=== PATIENT | male | born 1960 | race Caucasian/White ===

== ENCOUNTER 2019-10-29 13:56 | Inpatient (IN) | payer MEDICAID ==
[~2019-10-29] VITALS: Ht 172.7 cm; Wt 71.7 kg
[2019-10-29] MEDS ORDERED: VANCOMYCIN PER PHARMACY 1,000 MG IV SCH (14:45)
[2019-10-29] MEDS ORDERED: SODIUM CHLORIDE 0.9% 500 ML IV ONE (14:45)
[2019-10-29 15:21] LABS: Basophils # (auto) 0 10 ^3/uL (0-0.2); Basophils % (auto) 0.6 % (0.0-2.0); Eosinophils # (auto) 0.3 10 ^3/uL (0-0.8); Eosinophils % (auto) 5.2 % (0.0-7.0); Hematocrit 35.4 % (41.0-53.0); Hemoglobin 11.5 g/dL (13.5-17.5); Lymphocytes % (auto) 16.7 % (10.0-50.0); Mean Corpuscular Hemoglobin 27.7 pg (28.0-32.0); Mean Corpuscular Hgb Conc. 32.5 g/dL (32.0-36.0); Mean Corpuscular Volume 85.1 fL (80.0-100.0); Monocytes # (auto) 0.5 10 ^3/uL (0-1.3); Monocytes % (auto) 8.8 % (0.0-12.0); Neutrophils # (auto) 4.2 10 ^3/uL (1.6-8.6); Neutrophils % (auto) 68.7 % (37.0-80.0); Platelet Count (auto) 235 10^3/uL (140-450); Red Blood Cells 4.16 10^6/uL (4.5-5.90); Red Cell Distribution Width 18.8 % (11.8-14.3); White Blood Cell 6.1 10^3/uL (4.4-10.8)
[2019-10-29] MEDS ORDERED: FUROSEMIDE 20 MG/2 ML VIAL IV ONE ×2 (15:30→17:00)
[2019-10-29] MEDS ORDERED: VANCOMYCIN 1GM/250ML 250 ML IV ONE (15:30)
[2019-10-29 15:35] LABS: Alanine Aminotransferase 30 U/L (16-61); Albumin 2.8 g/dL (3.4-5.0); Anion Gap 6 (5-15); Aspartate Aminotransferase 32 U/L (15-37); BUN/Creatinine Ratio 12.1; Blood Urea Nitrogen 12 mg/dL (7-18); Calcium 8.5 mg/dL (8.5-10.1); Carbon Dioxide 31 mmol/L (21-32); Chloride 98 mmol/L (98-107); GFR African American 100 mL/min; GFR Non-African American 83 mL/min; Glucose 140 mg/dL (74-106); Potassium 3.7 mmol/L (3.5-5.1); Sodium 135 mmol/L (136-145)
[2019-10-29 15:40] LABS: Alkaline Phosphatase 112 U/L (45-117); Bilirubin, Total 0.6 mg/dL (0.2-1.0); Total Protein 6.8 g/dL (6.4-8.2)
[2019-10-29 15:42] LABS: INR 1.07 (0.9-1.15); Partial Thromboplastin Time 27.9 sec (23.64-32.05)
[2019-10-29] MEDS ORDERED: IOHEXOL 350 MG/ML 100ML IJ ONE (17:07)
[2019-10-29 17:39] LABS: Urine WBC None Seen /hpf (0 - 3)
[2019-10-29 17:59] LABS: Urine Bacteria NONE SEEN /hpf (None Seen); Urine Blood Negative /uL (Negative); Urine Specific Gravity 1.008 (1.001-1.035)
[2019-10-29] MEDS ORDERED: MORPHINE SULF INJ 2 MG/ML SYRINGE 1ML IV PRN (18:00)
[2019-10-29] MEDS ORDERED: NITROGLYCERIN 0.4 MG SL TAB SL ONE (18:00)
[2019-10-29] MEDS ORDERED: FUROSEMIDE 100 MG/10ML VIAL IV ONE (18:00)
[2019-10-29] MEDS ORDERED: PIPERACILLIN-TAZOB 3.375GM 100 ML IV SCH (18:00)
[2019-10-29] MEDS ORDERED: MORPHINE SULF INJ 2 MG/ML SYRINGE 1ML IV ONE (18:00)
[2019-10-29] MEDS ORDERED: NITROGLYCERIN 0.4 MG SL TAB SL PRN ×2 (18:00→19:15)
[2019-10-29] MEDS ORDERED: ONDANSETRON HCL 4 MG/2 ML VIAL IV PRN (19:15)
[2019-10-29] MEDS ORDERED: DEXTROSE (50%) 50ML SYRG IV PRN (19:15)
[2019-10-29] MEDS ORDERED: PIPERACILLIN-TAZOB 3.375GM 100 ML IV ONE (19:15)
--- NOTE | 2019-10-29 19:45 | NUR ---
Pt received from ER via wheelchair, A/A/O x 4. No c/o pain or discomfort at this time. Explained unit environment, call light within reach and side rails up x 2.
[2019-10-29 20:00] VITALS: BP 131/80
[2019-10-29] MEDS: FAMOTIDINE 20 MG TAB PO SCH (21:30)
[2019-10-29] MEDS: ATORVASTATIN 20 MG TAB PO SCH (21:30)
[2019-10-29] MEDS: METOPROLOL TARTRATE 25 MG TAB PO SCH (21:30)
[2019-10-29] MEDS ORDERED: POTA10TA51 PO (21:52)
[2019-10-29] MEDS ORDERED: FURO1TAB31 PO (21:52)
[2019-10-29 22:00] VITALS: BP 131/80
[2019-10-29] MEDS: InsuLIN REG 1unit/0.01ml Soln (100units/ml) SC SCH (22:00)
[2019-10-29] MEDS: ACCU-CHEK COMFORT CURVE STRIP VI SCH (22:33)
[2019-10-29] MEDS: PIPERACILLIN-TAZOB 3.375GM 100 ML IV SCH (23:34)
[2019-10-30] MEDS: HYDROcodone-ACET 5/325MG TAB PO PRN ×2 (01:08→20:44)
[2019-10-30 05:00] VITALS: BP 129/76
[2019-10-30 05:25] LABS: Basophils # (auto) 0 10 ^3/uL (0-0.2); Basophils % (auto) 0.6 % (0.0-2.0); Eosinophils # (auto) 0.4 10 ^3/uL (0-0.8); Eosinophils % (auto) 7.3 % (0.0-7.0); Hematocrit 35.2 % (41.0-53.0); Hemoglobin 11.7 g/dL (13.5-17.5); Lymphocytes % (auto) 16.3 % (10.0-50.0); Mean Corpuscular Hemoglobin 28.3 pg (28.0-32.0); Mean Corpuscular Hgb Conc. 33.3 g/dL (32.0-36.0); Monocytes # (auto) 0.5 10 ^3/uL (0-1.3); Monocytes % (auto) 9.2 % (0.0-12.0); Neutrophils % (auto) 66.6 % (37.0-80.0); Nucleated Red Blood Cells % 0.1 %; Platelet Count (auto) 221 10^3/uL (140-450); Red Blood Cells 4.15 10^6/uL (4.5-5.90); Red Cell Distribution Width 18.8 % (11.8-14.3)
[2019-10-30] MEDS: PIPERACILLIN-TAZOB 3.375GM 100 ML IV SCH ×3 (05:31→17:31)
[2019-10-30 05:42] LABS: % Iron Saturation 10.7 % (20-55)
[2019-10-30 05:43] LABS: Albumin 2.8 g/dL (3.4-5.0); Calcium 8.3 mg/dL (8.5-10.1); Magnesium 2.1 mg/dL (1.6-2.6); Potassium 3.5 mmol/L (3.5-5.1)
[2019-10-30 05:52] LABS: BUN/Creatinine Ratio 8.7; Bilirubin, Total 0.7 mg/dL (0.2-1.0); CRP High Sensitivity 2.14 mg/dL (< 0.3); Phosphorus 3.3 mg/dL (2.5-4.90); Total Protein 6.8 g/dL (6.4-8.2)
[2019-10-30] MEDS: FUROSEMIDE 100 MG/10ML VIAL IV SCH ×2 (05:58→17:32)
[2019-10-30] MEDS: InsuLIN REG 1unit/0.01ml Soln (100units/ml) SC SCH ×4 (05:59→22:00)
[2019-10-30] MEDS: ACCU-CHEK COMFORT CURVE STRIP VI SCH ×4 (06:00→22:22)
[2019-10-30] MEDS: VANCOMYCIN 1GM/250ML 250 ML IV SCH ×2 (06:57→20:42)
[2019-10-30 07:04] LABS: Cholesterol 145 mg/dL (< 200); HDL Cholesterol 41 mg/dL (40-59); LDL Cholesterol 83 mg/dL (< 100); Triglycerides 69 mg/dL (< 150)
--- NOTE | 2019-10-30 07:45 | NUR ---
Patient in bed, awake, oriented x4, on room air, bilateral lower extremities with redness noted, scabbed skin tear on the right knee, scabs on bilateral bottom of the feet. No acute distress noted.
--- NOTE | 2019-10-30 08:50 | NUR ---
Photos taken of bilateral lower extremities, bilateral feet. Wound Care forms placed on the Wound Care tray. Camera returned to [facility].
[2019-10-30 09:00] VITALS: BP 129/79
--- NOTE | 2019-10-30 09:50 | NUR ---
As per Unit SecYvonne Jain, the Podiatry Consult called in but Dr. Byrne will be available on Friday, November 01, 2019.
[2019-10-30] MEDS: ENOXAPARIN SOD 40 MG/0.4 ML SYRINGE SC SCH ×2 (10:00→10:24)
[2019-10-30] MEDS: DOCUSATE SOD 100 MG CAP PO SCH (10:00)
[2019-10-30] MEDS: METOPROLOL TARTRATE 25 MG TAB PO SCH ×2 (10:25→22:21)
[2019-10-30] MEDS: LISINOPRIL 5 MG TAB PO SCH (10:26)
[2019-10-30] MEDS: FAMOTIDINE 20 MG TAB PO SCH ×2 (10:26→22:22)
[2019-10-30] MEDS: ASPirin 81 mg TAB PO SCH (10:26)
--- NOTE | 2019-10-30 10:26 | NUR ---
Patient stated he had a bowel movement today. Colace PO held.
--- NOTE | 2019-10-30 10:27 | NUR ---
Patient refused Lovenox SC. Risks and benefits explained, patient verbalized "I don't want it at all."
--- NOTE | 2019-10-30 12:00 | NUR ---
Tam Pereyra at bedside for Cardiology Consult. ordered EKG.
--- NOTE | 2019-10-30 12:18 | NUR ---
EKG done. Copy of results given to Tam Pereyra MD ordered Cardiolite Multiple on Friday, November 01, 2019.
--- NOTE | 2019-10-30 12:25 | NUR ---
EKG results copy placed in the patient's chart.
--- NOTE | 2019-10-30 12:50 | NUR ---
Ana Sommers at bedside. made aware Dr. Nick has seen the patient for Cardiology Consult and ordered Stress Test on Friday. assessed the bilateral lower extremities and feet. Dr. Garcia ordered to cancel the Podiatry Consult.
--- NOTE | 2019-10-30 12:54 | NUR ---
Called the office of Dr. Byrne. Phone on voicemail. Left a message that patient's Podiatry Consult is cancelled.
[2019-10-30 13:00] VITALS: BP 128/74
[2019-10-30] MEDS ORDERED: POTASSIUM CHL 20 Meq TABLET PO ONE (13:00)
[2019-10-30] MEDS ORDERED: OPTISON 3ml Vial for INJ IV ONE ×2 (14:26→14:30)
--- NOTE | 2019-10-30 16:00 | NUR ---
About 700 ml of clear, yellowish urine emptied from two urinals.
--- NOTE | 2019-10-30 16:45 | NUR ---
Patient walking in the room. Steady gait noted.
[2019-10-30 17:00] VITALS: BP 119/69
--- NOTE | 2019-10-30 19:26 | NUR ---
Opening Shift Note Assumed care of patient after receiving report from CHELO Bowman. Patient laying in bed comfortably, awake and alert. No S/S of distress/SOB or pain. Instructed on POC and to call for assist PRN, will continue to monitor for changes Q1hr and PRN.
--- NOTE | 2019-10-30 20:56 | NUR ---
Pain management Patient stated he was experiencing pain 7/10 in bilateral lower extremities. Available medication is Erie PRN for moderate pain 4-6. Patient requested Erie as a pain reliever. Will reassess and continue to monitor.
[2019-10-30 22:00] VITALS: BP 133/77
[2019-10-30] MEDS: ATORVASTATIN 20 MG TAB PO SCH (22:21)
[2019-10-31] MEDS: PIPERACILLIN-TAZOB 3.375GM 100 ML IV SCH ×4 (00:17→17:28)
[2019-10-31 05:00] VITALS: BP 127/80
--- NOTE | 2019-10-31 05:48 | NUR ---
IV removal Patient stated IV was pulled out while sleeping, he didn't realize it was caught. IV catheter fully intact, no trauma to site. Pressure dressing applied to site. Patient tolerated well. Addendum: 10/31/19 at 0559 by Lucero Lehman RN IV insertion IV access obtained, via clean sterile technique by inserting 22 gauge catheter at left wrist after 2 attempt(s). IV secured properly. No trauma to site. Patient tolerated well.
[2019-10-31 06:09] LABS: Basophils # (auto) 0.1 10 ^3/uL (0-0.2); Basophils % (auto) 0.8 % (0.0-2.0); Eosinophils # (auto) 0.6 10 ^3/uL (0-0.8); Eosinophils % (auto) 8.2 % (0.0-7.0); Hematocrit 36.5 % (41.0-53.0); Hemoglobin 11.9 g/dL (13.5-17.5); Lymphocytes % (auto) 14.9 % (10.0-50.0); Mean Corpuscular Hemoglobin 27.4 pg (28.0-32.0); Mean Corpuscular Hgb Conc. 32.6 g/dL (32.0-36.0); Mean Corpuscular Volume 84.2 fL (80.0-100.0); Monocytes # (auto) 0.6 10 ^3/uL (0-1.3); Monocytes % (auto) 8.6 % (0.0-12.0); Neutrophils # (auto) 4.7 10 ^3/uL (1.6-8.6); Neutrophils % (auto) 67.5 % (37.0-80.0); Platelet Count (auto) 238 10^3/uL (140-450); Red Blood Cells 4.34 10^6/uL (4.5-5.90)
[2019-10-31] MEDS: FUROSEMIDE 100 MG/10ML VIAL IV SCH ×2 (06:09→17:28)
[2019-10-31] MEDS: ACCU-CHEK COMFORT CURVE STRIP VI SCH (06:09)
[2019-10-31] MEDS: InsuLIN REG 1unit/0.01ml Soln (100units/ml) SC SCH (06:19)
[2019-10-31 06:28] LABS: Calcium 8.7 mg/dL (8.5-10.1); Potassium 3.6 mmol/L (3.5-5.1)
[2019-10-31 06:30] LABS: BUN/Creatinine Ratio 11.2
--- NOTE | 2019-10-31 08:00 | NUR ---
Patient standing up, walking in the room. No acute distress noted.
[2019-10-31 09:00] VITALS: BP 131/74
--- NOTE | 2019-10-31 09:11 | NUR ---
Ana Sommers at bedside. ordered to obtain medical records from [facility].
--- NOTE | 2019-10-31 09:20 | NUR ---
Ana Sommers ordered to discontinue Accu check, Insulin orders. Patient's blood sugar levels within normal range.
--- NOTE | 2019-10-31 09:30 | NUR ---
Called Pharmacy that Vancomycin IV is at 1100 am and Zosyn IV is at 1200 pm. Patient's IV line is only 22 gauge. Pharmacist said Zosyn IV can be given now, but wait for the Vancomycin trough results before giving the Vanco at 1100 am.
[2019-10-31] MEDS: ENOXAPARIN SOD 40 MG/0.4 ML SYRINGE SC SCH (09:56)
[2019-10-31] MEDS: POTASSIUM CHL 20 Meq TABLET PO SCH (09:58)
[2019-10-31] MEDS: ASPirin 81 mg TAB PO SCH (09:58)
[2019-10-31] MEDS: METOPROLOL TARTRATE 25 MG TAB PO SCH ×2 (09:59→21:56)
[2019-10-31] MEDS: FAMOTIDINE 20 MG TAB PO SCH ×2 (09:59→21:56)
[2019-10-31] MEDS: LISINOPRIL 5 MG TAB PO SCH (09:59)
[2019-10-31] MEDS: DOCUSATE SOD 100 MG CAP PO SCH (09:59)
--- NOTE | 2019-10-31 10:00 | NUR ---
Patient had a bowel movement. Patient refused Colace. Patient refused Lovenox SC. Patient is ambulatory, steady gait noted.
--- NOTE | 2019-10-31 10:08 | NUR ---
Request to obtain medical records from [facility] (P# [phone]) sent via .
[2019-10-31] MEDS: VANCOMYCIN 1GM/250ML 250 ML IV SCH ×2 (11:26→11:37)
--- NOTE | 2019-10-31 11:30 | NUR ---
Called Laboratory for Vanco trough results. Vancomycin IV is due at 1100 am.
--- NOTE | 2019-10-31 11:31 | NUR ---
Called Pharmacy that Vanco trough results still pending.
--- NOTE | 2019-10-31 11:32 | NUR ---
Pharmacist said the Vanco trough was just resulted at this time.
--- NOTE | 2019-10-31 11:50 | NUR ---
Received the medical records from [facility] via Fax. Medical records placed in the patient's chart. Ana Sommers made aware.
[2019-10-31 13:00] VITALS: BP 120/78
[2019-10-31 17:00] VITALS: BP 124/80
--- NOTE | 2019-10-31 19:31 | NUR ---
Opening Shift Note Assumed care of patient after receiving report from CHELO Bowman. Patient is awake and alert, resting in bed comfortably. No S/S of distress/SOB or pain. Instructed on POC and to call for assist PRN, call light within reach. Will continue to monitor for changes Q1hr and PRN.
[2019-10-31] MEDS: ATORVASTATIN 20 MG TAB PO SCH (21:55)
[2019-10-31 22:00] VITALS: BP 128/80
[2019-10-31] MEDS: HYDROcodone-ACET 5/325MG TAB PO PRN (22:04)
[2019-11-01] VITALS (7 sets, daily range): BP systolic 95–131; BP diastolic 56–81
[2019-11-01] MEDS: PIPERACILLIN-TAZOB 3.375GM 100 ML IV SCH ×4 (00:09→17:49)
[2019-11-01] MEDS: VANCOMYCIN 1GM/250ML 250 ML IV SCH ×2 (00:58→15:34)
--- NOTE | 2019-11-01 04:34 | NUR ---
IV insertion x2 IV access obtained, via clean sterile technique by inserting 20 gauge catheter at the right forearm and 20 gauge at the left forearm after 1 attempt each. IVs secured properly. No trauma to site. Patient tolerated well.
[2019-11-01] MEDS: FUROSEMIDE 100 MG/10ML VIAL IV SCH ×2 (05:50→17:48)
--- NOTE | 2019-11-01 06:58 | NUR ---
Care endorsed to CHELO Castro. Patient resting in bed comfortably, bed in lowest position, call light within reach. No s/s of SOB, pain, or distress noted at this time.
--- NOTE | 2019-11-01 07:30 | NUR ---
Opening Shift Note Assumed care of patient after receiving report from noc shift rn. Patient is awake and alert, watching TV. No S/S of distress/SOB, denies pain at this time. Plan of care discussed, encouraged to call for assist PRN, phone and call light within reach. Will continue to monitor for changes Q1hr and PRN. Awaiting stress test this AM.
[2019-11-01] MEDS ORDERED: ADENOSINE 69 MG in GIVE UN-DILUTED 0 ML IV STA (08:17)
--- NOTE | 2019-11-01 09:08 | NUR ---
Dr. Garcia at bedside, discussed plan of care with patient. Patient able to express concerns and verbalized understanding.
--- NOTE | 2019-11-01 09:10 | NUR ---
patient is currently off unit for stress test. will resume scheduled medication upon return to unit.
[2019-11-01] MEDS: DOCUSATE SOD 100 MG CAP PO SCH (10:00)
[2019-11-01] MEDS: ENOXAPARIN SOD 40 MG/0.4 ML SYRINGE SC SCH (10:00)
--- NOTE | 2019-11-01 11:12 | NUR ---
PATIENT BACK IN UNIT. SCHEDULED MEDICATION RESUMED. PATIENT REFUSED COLACE AND LOVENOX AT THIS TIME.
[2019-11-01] MEDS: METOPROLOL TARTRATE 25 MG TAB PO SCH (11:13)
[2019-11-01] MEDS: ASPirin 81 mg TAB PO SCH (11:14)
[2019-11-01] MEDS: POTASSIUM CHL 20 Meq TABLET PO SCH (11:14)
[2019-11-01] MEDS: FAMOTIDINE 20 MG TAB PO SCH ×2 (11:15→21:52)
[2019-11-01] MEDS: LISINOPRIL 5 MG TAB PO SCH (11:15)
--- NOTE | 2019-11-01 15:15 | NUR ---
MAK GARCIA AT BEDSIDE, DISCUSSED STRESS TEST RESULT AND PLAN FOR LEFT HEART CATH AND CORONARY ANGIOGRAM ON FRIDAY, 11/02. PATIENT VERBALIZED UNDERSTANDING. WILL CONTINUE TO MONITOR Q1HR AND PRN.
--- NOTE | 2019-11-01 15:19 | NUR ---
Received Social Service Referral for pt that is listed as not having any insurance. Pt is unemployed. Discussed with pt eligibility options for medical coverage based on their current situation. Pt referred to Ronny Alcantara, [place] Manager , to assist with process for [employer] insurance coverage. Advised pt that additional information regarding d/c planning would be provided prior to their discharge. Will follow up with Ronny regarding the insurance status.
--- NOTE | 2019-11-01 15:52 | NUR ---
I faxed [employer] order to [employer].
[2019-11-01] MEDS: CARVEDILOL 12.5 MG TAB PO SCH (17:50)
--- NOTE | 2019-11-01 19:31 | NUR ---
Opening Shift Note Assumed care of patient after receiving report from CHELO Castro. Patient awake and alert, out of bed, sitting in chair at bedside comfortably. No S/S of distress/SOB or pain. Call light within reach, instructed on POC and to call for assist PRN, will continue to monitor for changes Q1hr and PRN.
[2019-11-01] MEDS: ATORVASTATIN 20 MG TAB PO SCH (21:51)
[2019-11-02] MEDS: PIPERACILLIN-TAZOB 3.375GM 100 ML IV SCH ×5 (00:11→23:26)
[2019-11-02 05:00] VITALS: BP 116/72
[2019-11-02] MEDS: VANCOMYCIN 1GM/250ML 250 ML IV SCH ×2 (05:00→19:54)
[2019-11-02] MEDS: FUROSEMIDE 100 MG/10ML VIAL IV SCH ×2 (06:33→17:58)
--- NOTE | 2019-11-02 06:58 | NUR ---
Care endorsed to CHELO Castro. Patient resting in bed comfortably in lowest possible position with x2 side rails and call light within reach.
--- NOTE | 2019-11-02 07:12 | NUR ---
Opening Shift Note Assumed care of patient after receiving report from noc shift rn, Lucero. Patient is awake and alert and oriented x4. No S/S of distress/SOB, denies pain at this time. Plan of care discussed, encouraged to call for assist PRN, phone and call light within reach. Will continue to monitor for changes Q1hr and PRN.
[2019-11-02] MEDS: CARVEDILOL 12.5 MG TAB PO SCH ×2 (07:40→17:59)
[2019-11-02 08:00] VITALS: BP 124/73
[2019-11-02 08:04] VITALS: BP 124/73
[2019-11-02 08:37] LABS: Basophils # (auto) 0 10 ^3/uL (0-0.2); Basophils % (auto) 0.6 % (0.0-2.0); Eosinophils # (auto) 0.6 10 ^3/uL (0-0.8); Hematocrit 38.2 % (41.0-53.0); Hemoglobin 12.5 g/dL (13.5-17.5); Lymphocytes # (auto) 0.9 10 ^3/uL (0.4-5.4); Mean Corpuscular Hemoglobin 27.5 pg (28.0-32.0); Mean Corpuscular Hgb Conc. 32.7 g/dL (32.0-36.0); Monocytes # (auto) 0.4 10 ^3/uL (0-1.3); Neutrophils # (auto) 4.3 10 ^3/uL (1.6-8.6); Neutrophils % (auto) 68.4 % (37.0-80.0); Nucleated Red Blood Cells % 0.1 %; Platelet Count (auto) 238 10^3/uL (140-450); Red Blood Cells 4.55 10^6/uL (4.5-5.90); Red Cell Distribution Width 18.7 % (11.8-14.3); White Blood Cell 6.3 10^3/uL (4.4-10.8)
[2019-11-02 09:00] LABS: BUN/Creatinine Ratio 11.7; Calcium 8.9 mg/dL (8.5-10.1); Potassium 3.5 mmol/L (3.5-5.1)
[2019-11-02] MEDS: FAMOTIDINE 20 MG TAB PO SCH ×2 (09:07→21:25)
[2019-11-02] MEDS: POTASSIUM CHL 20 Meq TABLET PO SCH (09:08)
[2019-11-02] MEDS: ASPirin 81 mg TAB PO SCH (09:08)
[2019-11-02] MEDS: LISINOPRIL 5 MG TAB PO SCH (09:09)
[2019-11-02] MEDS: DOCUSATE SOD 100 MG CAP PO SCH (09:10)
[2019-11-02] MEDS: ENOXAPARIN SOD 40 MG/0.4 ML SYRINGE SC SCH (09:10)
[2019-11-02 12:30] VITALS: BP 91/49
[2019-11-02 16:40] VITALS: BP 109/70
[2019-11-02] MEDS: HYDROcodone-ACET 5/325MG TAB PO PRN (18:50)
--- NOTE | 2019-11-02 20:00 | NUR ---
Opening Shift Note Assumed care of patient, awake and alert. No S/S of distress/SOB or pain. Instructed on POC and to call for assist PRN, will continue to monitor for changes Q1hr and PRN.Advised no food or drink after midnight, for left heart cath. sada. Signed: 11/02/19 at 2254 by Zara Grullon RN
[2019-11-02] MEDS: ATORVASTATIN 20 MG TAB PO SCH (21:24)
[2019-11-02 22:00] VITALS: BP 100/63
[2019-11-03 05:00] VITALS: BP 116/71
[2019-11-03] MEDS: PIPERACILLIN-TAZOB 3.375GM 100 ML IV SCH ×2 (05:08→13:56)
[2019-11-03] MEDS: FUROSEMIDE 100 MG/10ML VIAL IV SCH (05:25)
[2019-11-03 06:04] LABS: Basophils # (auto) 0 10 ^3/uL (0-0.2); Basophils % (auto) 0.7 % (0.0-2.0); Eosinophils # (auto) 0.6 10 ^3/uL (0-0.8); Eosinophils % (auto) 9.1 % (0.0-7.0); Hematocrit 35.4 % (41.0-53.0); Hemoglobin 11.6 g/dL (13.5-17.5); Lymphocytes # (auto) 1.1 10 ^3/uL (0.4-5.4); Lymphocytes % (auto) 17.4 % (10.0-50.0); Mean Corpuscular Hemoglobin 27.4 pg (28.0-32.0); Mean Corpuscular Hgb Conc. 32.6 g/dL (32.0-36.0); Mean Corpuscular Volume 84.1 fL (80.0-100.0); Monocytes # (auto) 0.5 10 ^3/uL (0-1.3); Monocytes % (auto) 8.1 % (0.0-12.0); Neutrophils % (auto) 64.7 % (37.0-80.0); Platelet Count (auto) 202 10^3/uL (140-450); Red Blood Cells 4.21 10^6/uL (4.5-5.90); Red Cell Distribution Width 19.2 % (11.8-14.3); White Blood Cell 6.2 10^3/uL (4.4-10.8)
[2019-11-03 06:13] LABS: INR 1.12 (0.9-1.15); Partial Thromboplastin Time 27.4 sec (23.64-32.05)
[2019-11-03 06:18] LABS: BUN/Creatinine Ratio 13.4; Calcium 8.7 mg/dL (8.5-10.1); Potassium 3.7 mmol/L (3.5-5.1)
--- NOTE | 2019-11-03 07:14 | NUR ---
Report given to Pat Dumont, patient is resting no distress, NPO maintained.
--- NOTE | 2019-11-03 07:50 | NUR ---
OPENING SHIFT NOTE: PATIENT RESTING IN BED, A/OX4. RESPIRATIONS EVEN AND UNLABORED. UPDATED ON PLAN OF CARE. PATIENT VERBALIZED UNDERSTANDING. NPO FOR LEFT HEART CATH TODAY. CALL LIGHT WITHIN REACH, WILL CONTINUE TO MONITOR.
--- NOTE | 2019-11-03 08:23 | NUR ---
VANCO: PER PHARMACY, OKAY TO GIVE VANCO DOSE SCHEDULED AT 0900 AND TROUGH TO BE DRAWN TOMORROW.
[2019-11-03] MEDS: FAMOTIDINE 20 MG TAB PO SCH ×2 (08:35→22:30)
[2019-11-03] MEDS: POTASSIUM CHL 20 Meq TABLET PO SCH (08:35)
[2019-11-03] MEDS: CARVEDILOL 12.5 MG TAB PO SCH ×2 (08:36→10:00)
[2019-11-03] MEDS: VANCOMYCIN 1GM/250ML 250 ML IV SCH ×2 (08:37→23:30)
[2019-11-03] MEDS: ASPirin 81 mg TAB PO SCH (08:37)
[2019-11-03] MEDS: LISINOPRIL 5 MG TAB PO SCH (08:38)
[2019-11-03 09:00] VITALS: BP 114/67
[2019-11-03] MEDS: DOCUSATE SOD 100 MG CAP PO SCH (10:00)
[2019-11-03] MEDS: ENOXAPARIN SOD 40 MG/0.4 ML SYRINGE SC SCH (10:00)
[2019-11-03] MEDS ORDERED: LIDOCAINE 2%HCL (LOCAL ANESTH.) INJ 20ML MDV ONE (10:15)
[2019-11-03] MEDS ORDERED: IODIXANOL 320MG/ML 100ML BTL IV ONE ×2 (10:15→11:05)
[2019-11-03] MEDS ORDERED: fentaNYL CITRATE 100 MCG/2 ML VL ONE (10:36)
[2019-11-03] MEDS ORDERED: VERAPAMIL 2.5MG/ML INJ 2ML VIAL IV ONE (10:36)
[2019-11-03] MEDS ORDERED: ANGIOMAX 250 MG VIAL IV ONE (10:36)
[2019-11-03] MEDS ORDERED: SODIUM CHL 0.9% 50 ML ONE (10:37)
[2019-11-03] MEDS ORDERED: MIDAZOLAM HCL 1MG/1ML-2 ML VIAL ONE (10:37)
[2019-11-03] MEDS ORDERED: HEPARIN SODIUM (PORCINE) 5000 UNITS/ML 1ML VIAL ONE (10:37)
[2019-11-03] MEDS ORDERED: CLOPIDOGREL 300 MG TAB ONE (11:26)
--- NOTE | 2019-11-03 12:35 | NUR ---
S/P LEFT HEART CATH: PATIENT BACK IN ROOM FROM LEFT HEART CATH. PATIENT UPDATED ON NEW STENTS AND MEDICATION MANAGEMENT GOING HOME. PATIENT VERBALIZED UNDERSTANDING. VS OBTAINED AND VASC BAND TO START DEFLATION AT 1240 PER ENGINEER GAS PUMPING STATION PROTOCOL.
[2019-11-03 13:00] VITALS: BP 82/54
--- NOTE | 2019-11-03 13:32 | NUR ---
ZOLL VEST: BRAYDEN FROM ZOLL AT BEDSIDE. PATIENT WEARING NEW ZOLL VEST.
--- NOTE | 2019-11-03 13:45 | NUR ---
POST CATH: PATIENT VASC BAND COMPLETELY DEFLATED. VS Q 15 MIN COMPLETED. PATIENT SHOWS NO SIGNS OF DISTRESS. CATH SITE DRESSED IN GAUZE AND TEGADERM. PATIENT GIVEN INSTRUCTIONS ON AFTER CARE, AND VERBALIZED UNDERSTANDING.
[2019-11-03 16:45] VITALS: BP 105/47
--- NOTE | 2019-11-03 19:22 | NUR ---
Care endorsed to Seth WHITNEY.
--- NOTE | 2019-11-03 19:30 | NUR ---
Opening Shift Note Assumed care of patient. Patient is awake and alert. No S/S of distress/SOB or pain. Instructed on POC and to call for assist PRN, will continue to monitor for changes Q1hr and PRN. Bed locked in lowest position and bed rails up x2. Call light within reach.
[2019-11-03 22:00] VITALS: BP 111/73
[2019-11-03] MEDS: ATORVASTATIN 20 MG TAB PO SCH (22:29)
[2019-11-04] MEDS: PIPERACILLIN-TAZOB 3.375GM 100 ML IV SCH ×3 (01:07→12:00)
[2019-11-04 05:00] VITALS: BP 115/69
[2019-11-04 06:20] LABS: Basophils # (auto) 0.1 10 ^3/uL (0-0.2); Eosinophils # (auto) 0.5 10 ^3/uL (0-0.8); Hematocrit 38.5 % (41.0-53.0); Hemoglobin 12.5 g/dL (13.5-17.5); Lymphocytes # (auto) 1.2 10 ^3/uL (0.4-5.4); Lymphocytes % (auto) 17.5 % (10.0-50.0); Mean Corpuscular Hemoglobin 27.4 pg (28.0-32.0); Mean Corpuscular Hgb Conc. 32.6 g/dL (32.0-36.0); Mean Corpuscular Volume 84.2 fL (80.0-100.0); Monocytes # (auto) 0.6 10 ^3/uL (0-1.3); Monocytes % (auto) 8.6 % (0.0-12.0); Neutrophils # (auto) 4.3 10 ^3/uL (1.6-8.6); Neutrophils % (auto) 64.9 % (37.0-80.0); Nucleated Red Blood Cells % 0.1 %; Platelet Count (auto) 211 10^3/uL (140-450); Red Blood Cells 4.57 10^6/uL (4.5-5.90); Red Cell Distribution Width 19.1 % (11.8-14.3); White Blood Cell 6.7 10^3/uL (4.4-10.8)
[2019-11-04] MEDS: FUROSEMIDE 100 MG/10ML VIAL IV SCH (06:22)
[2019-11-04 06:34] LABS: Calcium 8.8 mg/dL (8.5-10.1)
--- NOTE | 2019-11-04 07:55 | NUR ---
OPENING SHIFT NOTE: PATIENT AWAKE SITTING AT SIDE OF BED CONVERSING WITH NEIGHBOR BED. PATIENT RESPIRATIONS EVEN AND UNLABORED, ZOLL VEST ON AND IN PLACE. RIGHT RADIAL SITE CDI. PATIENT UPDATED ON PLAN OF CARE. CALL LIGHT WITHIN REACH. WILL CONTINUE TO MONITOR.
[2019-11-04 08:34] VITALS: BP 110/70
[2019-11-04] MEDS: FAMOTIDINE 20 MG TAB PO SCH (08:45)
[2019-11-04] MEDS: POTASSIUM CHL 20 Meq TABLET PO SCH (08:45)
[2019-11-04] MEDS: LISINOPRIL 5 MG TAB PO SCH (08:46)
[2019-11-04] MEDS: CARVEDILOL 12.5 MG TAB PO SCH (08:47)
[2019-11-04] MEDS: ASPirin 81 mg TAB PO SCH (08:48)
[2019-11-04] MEDS: DOCUSATE SOD 100 MG CAP PO SCH (08:48)
[2019-11-04] MEDS: ENOXAPARIN SOD 40 MG/0.4 ML SYRINGE SC SCH (08:49)
[2019-11-04] MEDS ORDERED: CLOPIDOGREL BISULFATE 75 MG TAB PO SCH (10:00)
[2019-11-04 11:00] VITALS: BP 110/70
--- NOTE | 2019-11-04 12:28 | NUR ---
CALL MADE TO KALEN WITH [facility]: [phone] CALLED REGARDING PATIENT STATUS FOR [facility] APPROVAL FOR DISHCARGE. KALEN UPDATED THIS RN THAT IT TAKES 45 DAYS FOR PROCESSING AND PATIENT IS PENDING.
[2019-11-04] MEDS: VANCOMYCIN 1GM/250ML 250 ML IV SCH (12:52)
--- NOTE | 2019-11-04 13:16 | NUR ---
DISCHARGE: PATIENT GIVEN ALL EDUCATION MATERIALS, AND ENCOURAGED TO FOLLOW UP INSTRUCTED WITH APPOINTMENTS, INSURANCE APPROVALS, AND TO TAKE ALL MEDICATIONS DIRECTED. PATIENT LEFT WEARING ZOLL VEST, AND ALL EQUIPMENT. IV REMOVED MANUAL PRESSURE APPLIED. TELE BOX RETURNED TO CARDIO UNIT. PATIENT TAKEN DOWN TO PRIVATE AUTO WITH ALL BELONGINGS WITHOUT INCIDENCE.
[2019-11-04 13:30] VITALS: BP 100/64
== END 2019-11-04 14:30 | disposition home or self-care (01) | DRG 853 ==
LOC: ER 13:56 → TELE 13:57 → TELE-CENTR 20:02
PROVIDERS: ADMIT Hospitalist; ATTEND Family Medicine
PROC: 4A023N7 Measurement of Cardiac Sampling and Pressure, Left Heart, Percutaneous Approach (ICD-10-PCS; principal; 2019-11-03)
PROC: 027034Z Dilation of Coronary Artery, One Artery with Drug-eluting Intraluminal Device, Percutaneous Approach (ICD-10-PCS; 2019-11-03)
PROC: B2111ZZ Fluoroscopy of Multiple Coronary Arteries using Low Osmolar Contrast (ICD-10-PCS; 2019-11-03)
PROC: B2151ZZ Fluoroscopy of Left Heart using Low Osmolar Contrast (ICD-10-PCS; 2019-11-03)
PROC: 4A033BC Measurement of Arterial Pressure, Coronary, Percutaneous Approach (ICD-10-PCS; 2019-11-03)
DX: A41.9 Sepsis, unspecified organism (principal); I50.23 Acute on chronic systolic (congestive) heart failure; E44.0 Moderate protein-calorie malnutrition; L03.115 Cellulitis of right lower limb; L03.116 Cellulitis of left lower limb; J45.909 Unspecified asthma, uncomplicated; M19.90 Unspecified osteoarthritis, unspecified site; I25.10 Atherosclerotic heart disease of native coronary artery without angina pectoris; F32.9 Major depressive disorder, single episode, unspecified; F41.9 Anxiety disorder, unspecified; I11.0 Hypertensive heart disease with heart failure; E78.00 Pure hypercholesterolemia, unspecified; I34.0 Nonrheumatic mitral (valve) insufficiency; F17.200 Nicotine dependence, unspecified, uncomplicated; D63.8 Anemia in other chronic diseases classified elsewhere; E11.65 Type 2 diabetes mellitus with hyperglycemia; Z91.14 Patient's other noncompliance with medication regimen; Z82.49 Family history of ischemic heart disease and other diseases of the circulatory system; Z68.24 Body mass index [BMI] 24.0-24.9, adult; I25.5 Ischemic cardiomyopathy
CPT/HCPCS: 36415; 36600; 71045; 71275; 78452; 80048; 80053; 80061; 80202; 81001; 82553; 82565; 82728; 82805; 82962; 83036; 83540; 83550; 83605; 83735; 83880; 84100; 84484; 85025; 85379; 85384; 85610; 85652; 85730; 86141; 86850; 86900; 86901; 87040; 87086; 92928; 93005; 93017; 93306; 93458; 93571; 93970; 99152; 99153; C1874; G0378; J0153; J2250; J2543; Q9956; Q9967

== ENCOUNTER → 2020-03-30 | Outpatient (CLI) | payer MEDICAID ==
[~2020-03-30] MED LIST: FURO1TAB31 PO; POTA10TA51 PO
== END | disposition home or self-care (01) ==
LOC: XYW 08:32
PROVIDERS: ATTEND Internal Medicine
DX: I08.3 Combined rheumatic disorders of mitral, aortic and tricuspid valves (principal); I50.20 Unspecified systolic (congestive) heart failure
CPT/HCPCS: 93306

== ENCOUNTER → 2020-09-19 | Outpatient (CLI) | payer MEDICAID ==
[2020-09-19 09:25] LABS: Urine WBC None Seen /hpf (0 - 3)
[2020-09-19 09:32] LABS: Urine Bacteria NONE SEEN /hpf (None Seen); Urine Blood Negative /uL (Negative); Urine Specific Gravity 1.004 (1.001-1.035)
[2020-09-19 09:34] LABS: Basophils # (auto) 0.1 10 ^3/uL (0-0.2); Eosinophils # (auto) 0.3 10 ^3/uL (0-0.8); Eosinophils % (auto) 5.7 % (0.0-7.0); Hematocrit 40.6 % (41.0-53.0); Hemoglobin 13.9 g/dL (13.5-17.5); Lymphocytes # (auto) 1.3 10 ^3/uL (0.4-5.4); Lymphocytes % (auto) 21.7 % (10.0-50.0); Mean Corpuscular Hemoglobin 33.8 pg (28.0-32.0); Mean Corpuscular Hgb Conc. 34.2 g/dL (32.0-36.0); Mean Corpuscular Volume 99.1 fL (80.0-100.0); Monocytes # (auto) 0.6 10 ^3/uL (0-1.3); Monocytes % (auto) 10.1 % (0.0-12.0); Neutrophils # (auto) 3.6 10 ^3/uL (1.6-8.6); Neutrophils % (auto) 61.5 % (37.0-80.0); Platelet Count (auto) 212 10^3/uL (140-450); Red Blood Cells 4.09 10^6/uL (4.5-5.90); Red Cell Distribution Width 14.4 % (11.8-14.3); White Blood Cell 5.9 10^3/uL (4.4-10.8)
[2020-09-19 09:52] LABS: Albumin 3.6 g/dL (3.4-5.0); Potassium 4.3 mmol/L (3.5-5.1)
[2020-09-19 10:01] LABS: BUN/Creatinine Ratio 10.5; Bilirubin, Total 0.6 mg/dL (0.2-1.0); Calcium 8.9 mg/dL (8.5-10.1); Total Protein 7.7 g/dL (6.4-8.2)
== END | disposition home or self-care (01) ==
LOC: LAB 09:06
PROVIDERS: ATTEND Internal Medicine
DX: I25.10 Atherosclerotic heart disease of native coronary artery without angina pectoris (principal); I10 Essential (primary) hypertension
CPT/HCPCS: 36415; 80053; 80061; 81001; 82274; 82306; 82607; 84443; 85025

== ENCOUNTER → 2020-10-25 | Outpatient (CLI) | payer MEDICAID | END | disposition home or self-care (01) | LOC: XYW 07:46 | PROVIDERS: ATTEND Internal Medicine | DX: I08.3 Combined rheumatic disorders of mitral, aortic and tricuspid valves (principal); I25.10 Atherosclerotic heart disease of native coronary artery without angina pectoris | CPT/HCPCS: 93306 ==